=== PATIENT | male | born 1955 | race Caucasian/White ===

== ENCOUNTER 2023-03-17 08:00 | Outpatient (CLI) | payer MEDICARE, OTHER, SELFPAY ==
--- NOTE | 2023-03-21 09:21 | EKG12_ITS ---
Test Reason : PRE OP Blood Pressure : / mmHG Vent. Rate : 051 BPM Atrial Rate : 051 BPM P-R Int : 156 ms QRS Dur : 106 ms QT Int : 486 ms P-R-T Axes : 009 -41 052 degrees QTc Int : 447 ms Sinus bradycardia Left axis deviation T wave abnormality, consider anterior ischemia Abnormal ECG Confirmed by SOREN YU, JOSELYN ([id number]), film editor LOLY FERRER ([id number]) on 03/21/2023 10:35:02 AM Referred By: Parag Jimenez Confirmed By:JOSELYN DOTY MD
== END 2023-03-17 10:00 | disposition home or self-care (01) ==
LOC: PAT 05-07 13:00
PROVIDERS: PCP Family Medicine; Referring Provider Urology; Visit Provider Urology
DX: Z01.810 Encounter for preprocedural cardiovascular examination (principal); R94.31 Abnormal electrocardiogram [ECG] [EKG]
CPT/HCPCS: 93005

== ENCOUNTER → 2023-04-07 | Outpatient (CLI) | payer MEDICARE, OTHER, SELFPAY ==
--- OUTSIDE RECORDS SUMMARY | 2023-04-07 17:18 | XMS RPT_ITS | CCD ---
Author Name Unknown Address [address] [place] [address] Organization [facility] Care Team Providers Care Fur Trimmer Name Role Phone Unavailable Primary Care Provider Unavailabl e Gabriel MARYCRUZ, Luke E Unavailable Jonas YU, Dr. Nathan Unavailable [phone] Tony YU, Dr. Tuttle ([facility]) Unavailable Michelle Horner MA Unavailable Unavailable Esau CORTESN, Ron Unavailable Unavailable Unavailable Unavailable GABRIEL, LUKE E Primary Care Unavailable GABRIEL, LUKE E Attending Unavailable GABRIEL, LUKE E Admitting Unavailable UNGERER, STEPAN HEPATOLOGIST Consulting Unavailable PROVIDER, UNKNOWN Consulting Unavailable NGUYEN CEDEÑO Admitting Unavailable NGUYEN CEDEÑO Primary Care Unavailable NGUYEN CEDEÑO Attending Unavailable UNGERER, STEPAN HEPATOLOGIST Consulting Unavailable PROVIDER, UNKNOWN Consulting Unavailable UNGERER, STEPAN HEPATOLOGIST Consulting Unavailable GABRIEL, LUKE E Primary Care Unavailable GABRIEL, LUKE E Attending Unavailable GABRIEL, LUKE E Admitting Unavailable PROVIDER, UNKNOWN Consulting Unavailable DAWIT QUINONES DO Consulting Unavailable GABRIEL, LUKE E Primary Care Unavailable GABRIEL, LUKE E Attending Unavailable GABRIEL, LUKE E Admitting Unavailable PROVIDER, UNKNOWN Consulting Unavailable PROVIDER, UNKNOWN Consulting Unavailable GABRIEL, LUKE E Attending Unavailable GABRIEL, LUKE E Admitting Unavailable GABRIEL, LUKE E Primary Care Unavailable UNGERER, STEPAN HEPATOLOGIST Consulting Unavailable PROVIDER, UNKNOWN Consulting Unavailable SUHAIL ODELL Attending Unavailable UNGERER, STEPAN HEPATOLOGIST Consulting Unavailable UNGERER, STEPAN HEPATOLOGIST Referring Unavailable SUHAIL ODELL Admitting Unavailable SUHAIL ODELL Primary Care Unavailable PROVIDER, UNKNOWN Consulting Unavailable VIGNESH YU, DR KARINE Priest Attending Doe flores PHYSICIAN, NONE Primary Care Unavailable Allergies Allergy Classification Reported Allergen(s) Allergy Type Date of Onset Reaction(s) Facility (1 source) Penicillins Propensity to adverse reactions to drug 7 Unknown [facility] (1 source) Penicillin Drug [facility] (1 source) Penicillins Drug allergy (disorder) [facility] Repository Medications Current Medications Medication Drug Class(es) Dates Sig (Normalized) Sig (Original) acetaminophen 325 mg / HYDROcodone bitartrate 5 mg oral tablet (1 source) Opioid Agonist Start: 02-14-2023 HYDROcodone 5 mg-acetaminophen 325 mg tablet ; 1 (one) tablet Q6 hours PRN severe pain for 0 days Quantity: 15 {Tablet} Refills: 0 Ordered: 14-Feb-2023 MARYCRUZ Bello Start: 14-Feb-2023 Comments: No OARRS acute treatment Completed/Discontinued Medications Medication Drug Class(es) Dates Sig (Normalized) Sig (Original) Biotin (1 source) take 15 mg by mouth once daily BIOTIN ORAL Take 15 mg by mouth once daily. 0 Active Problems Active Problems Problem Classification Problem Date Documented Da te Episodic/Chronic Calculus of urinary tract (4 sources) Kidney stone; Translations: [Calculus of kidney] 02-14-2023 Episodic Genitourinary symptoms and ill-defined conditions (4 sources) Increased frequency of urination; Translations: [Frequency of micturition] 02-13-2023 Episodic Other circulatory disease (2 sources) Basal crepitations; Translations: [Other specified symptoms and signs involving the circulatory and respiratory systems] 02-13-2023 Episodic Other injuries and conditions due to external causes (2 sources) Motion sickness; Translations: [Motion sickness, initial encounter] 02-13-2023 Episodic Other lower respiratory disease (3 sources) Cough; Translations: [Cough] 02-13-2023 Episodic Other lower respiratory disease (2 sources) Orthopnea; Translations: [Orthopnea] 02-13-2023 Episodic Other lower respiratory disease (4 sources) Restrictive lung disease; Translations: [Other disorders of lung] 10-25-2022 Episodic Unclassified (1 source) Follow up for multiple chronic conditions - The patient is here for follow-up of other condition(s) (Bibasilar crackles, cough). The patient always takes the prescribed medications. No side effects noted (Pt states steroid was working but is now out.). The patient has an active lifestyle but no regular exercise program. The patient states that breathing effort is improved (continued cough.). The patient states that the disease has no overall impact. 10-25-2022 Past or Other Problems Problem Classification Problem Date Documented Da te Episodic/Chronic Unclassified (1 source) Cough - The cough has been occurring for 6 months. The course has been constant. The cough is characterized as productive of frothy sputum. The cough occurs all the time. Associated symptoms include runny nose, sore throat (pt is taking cough drops to help with it) and wheezing, while there is no chest pain, fever, headache, nasal congestion or throat clearing. Note for Cough : pt had pneumonia in March but notes persistent cough sincept did have a cough with allergies before but it seems to have worsened in recent weekspt was given an inhaler from urgent care which seems to helps slightly with his symptoms, but he notes persistent coughing episodes and sputum productionpt has been sleeping on the sofa in a seated position for the last week since he is unable to lay supine without having a coughing fit pt notes worsening of his wheezing and coughing when taking hot showers 09-20-2022 Urinary tract infections (1 source) Urinary tract infections 02-13-2023 Results Test Name Value Interpretation Reference Range Facil ity Vital Signs Date Time Vital Sign Value Performing Clinician Faci lity 02-13-2023 13:53-0500 Body temperature 97.2 [degF] Ron Cifuentes LPN [employer]) [facility] [employer] 02-13-2023 13:53-0500 Body weight 101.61 kg Ron Cifuentes LPN [employer] [employer] 02-13-2023 13:53-0500 Diastolic blood pressure 70 mm[Hg] Ron Cifuentes LPN [facility] [employer], [employer] Encounters Encounter Date Encounter Type Care Provider Facility Start: 04-02-[address] KARINE MEADOWS MD Facility:A Start: 03-28-2023 End: 03-28-2023 ambulatory NGUYEN CEDEÑO [facility] Start: 02-14-2023 End: 02-14-2023 Medication Luke Gabriel PA-C Work Phone[facility] Start: 02-14-2023 End: 02-14-2023 Orders Luke Gabriel PA-C Work Phone: [employer] Start: 02-13-2023 End: 02-13-2023 ambulatory [facility] Start: 02-13-2023 End: 02-13-2023 Office outpatient visit 25 minutes Luke Gabriel PA-C Work Phone: [employer] Start: 10-25-2022 End: 10-25-2022 Office outpatient visit 25 minutes Luke Gabriel PA-C Work Phone: [employer] Start: 10-02-2022 End: 10-02-2022 Orders Luke Gabriel PA-C Work Phone: [employer] Start: 09-27-2022 End: 09-27-2022 ambulatory [facility] Start: 09-24-2022 End: 09-24-2022 Orders Luke Gabriel PA-C Work Phone: [employer]. Start: 09-23-2022 End: 09-23-2022 Orders Luke Gabriel PA-C Work Phone: [employer]. Start: 09-22-2022 End: 09-22-2022 Emergency department patient visit SUHAIL ODELL [facility] Start: 09-20-2022 End: 09-20-2022 ambulatory DAWIT ESQUIVEL [facility] Start: 09-20-2022 End: 09-20-2022 Office outpatient new 30 minutes Luke Gabriel PA-C Work Phone: [facility]. Start: 09-18-2022 Telephone encounter Antony sanderson MD Work Phone: Pulmonary Medicine Procedures Date Procedure Procedure Detail Performing Clinician Start: 02-13-2023 End: 02-14-2023 Ct abdomen & pelvis w/o contrast material Alfonzo Bello PA-C Work Phone: Plan of Treatment Date Care Activity Detail Author Start: 09-20-2027 Urine microalbumin profile DTA P,TDAP,TD (4 - Td or Tdap) [facility] Start: 03-12-2025 DIABETES SCREEN DIABETES SCREEN [facility] Start: 11-08-2022 Influenza vaccination INFLUENZA (#1) [facility] Start: 09-05-2022 Colonoscopy COLONOSCOPY [facility] Start: 09-05-2022 COLORECTAL CANCER SCREENING COLORECTAL CANCER SCREENING [facility] Start: 07-26-2022 LIPID SCREEN LIPID SCREEN [facility] Start: 03-10-2022 ADVANCE DIRECTIVE DISCUSSION ADVANCE DIRECTIVE DISCUSSION [facility] Start: 03-10-2022 DEPRESSION ASSESSMENT DEPRESSION ASS ESSMENT [facility] Start: 2021 PNEUMOCOCCAL: 65+ (1 - PCV) PNEUMOCOCCAL: 65+ (1 - PCV) [facility] Start: 08-25-2014 FECAL OCCULT BLOOD FECAL OCCULT BLOO D [facility] Start: 12-30-2011 PROSTATE CANCER SCRE ENING DISCUSSION PROSTATE CANCER SCREENING DISCUSSION [facility] Start: 2006 SHINGRIX VACCINE (1 of 2) SHINGRIX V ACCINE (1 of 2) [facility] Start: 2001 COLOGUARD (FIT-DNA) COLOGUARD (FIT-D NA) [facility] Start: [address] COLONOGRAPHY [facility] Start: 2001 SIGMOIDOSCOPY SIGMOIDOSCOPY [facility] Start: 1974 HIV SCREENING HIV SCREENING [facility] Start: 04-03-1957 COVID-19 VACCINE (#1) COVID-19 VACCI NE (#1) [facility] Immunizations Immunization Date Immunization Notes Care Provider Fa cility 09-19-2017 tetanus toxoid, redu briana diphtheria toxoid, and acellular pertussis vaccine, adsorbed Antony Mitchell MD Work Phone: [facility] 02-07-1962 trivalent poliovirus vaccine, live, oral Antony Mitchell MD Work Phone: [facility] Work Phone: 10-17-1961 DTP-Haemophilus influenzae type b conjugate vaccine Antony Mitchell MD Work Phone: [facility] Work Phone: 10-17-1961 trivalent poliovirus vaccine, live, oral Antony Mitchell MD Work Phone: [facility] Work Phone: 10-18-1959 trivalent poliovirus vaccine, live, oral Antony Mitchell MD Work Phone: [facility] Work Phone: 10-09-1959 vaccinia (smallpox) vaccine, diluted Antony Mitchell MD Work Phone: [facility] Work Phone: 10-08-1958 DTP-Haemophilus influenzae type b conjugate vaccine Antony Mitchell MD Work Phone: [facility] Work Phone: 1955 DTP-Haemophilus influenzae type b conjugate vaccine Antony Mitchell MD Work Phone: [facility] Work Phone: Payers Date Payer Category Payer Medicare [id number] 2023 Unknown [id number] 2006 [facility] Health [facility] [employer] [facility] OAP [id number] 2006-Present [phone] [address] [place] [address] Open Access [id number] 1955 Unknown [id number] 1956 Unknown [id number] 1956 Unknown [id number] 1956 Unknown [id number] 1956 Unknown [id number] 1956 Unknown [id number] 1955 Unknown [id number] Private Health Insurance [id number] Private Health Insurance [id number] Unknown Social History Date Type Detail Facility Start: 09-05-2017 Tobacco smoking stat [facility] Never smoked tobacco [facility] Start: 09-05-2017 Tobacco use and exposure Former smokeless tobacco user [facility] End: 03-10-1994 History of tobacco use Snuff User [facility] End: 03-10-1994 History of tobacco use Chews Tobacco [facility] Start: 2017 Alcohol intake Current drinke r of alcohol (finding) [facility] Start: 02-13-2020 History of Social function [facility] Start: 02-13-2020 Area Deprivation Index [facility] National Score (1-100), lower number is lower risk Not on file [facility] Start: 11-19-2013 Alcohol Comment 2 beers per day 12 o z [facility] Start: 1955 Sex Assigned At Not on file [facility] Male [employer] Work Phone: Tobacco smoking consumption unknown [employer]; [employer] Work Phone: NEGATED: Highlighted row No Social History Information Available No Social History Information Available [employer]; [employer] Work Phone: Medical Equipment Procedure Code Equipment Code Equipment Origin al Text Equipment Identifier Dates Patch Ventral Dave espinoia 46cm - [id number] Start: 11-24-2013 Note 09-18-2022 Telephone Encounter - Katey Galarza RN - 09/18/2022 2:18 PM EDT Note Date & Type Note Facility 09-18-2022 Miscellaneous Notes Formattin g of this note might be different from the original. Received message for this patient to get scheduled for chronic cough- Called and spoke with patient, Patient informed me he has everything taken care of and doesn't need an appointment in our chronic cough clinic documented in this encounter [facility] History of Past illness Narrative 11-01-2013 Note Date & Type Note Facility documented as of this encounter (statuses as of 09/19/2022) [facility] Summary Purpose Family History No Family History Records FoundNo Family History Records FoundNo Family History Records FoundNo Family History Records Found Advance Directives No Advanced Directives Records FoundNo Advanced Directives Records FoundNo Advanced Directives Records FoundNo Advanced Directives Records Found Additional Source Comments Source Comments (unrecognize d section and content) In the event this informatio n is protected by the Federal Confidentiality of Alcohol and Drug Abuse Patient Records regulations: The Federal rules restrict any use of the information to criminally investigate or prosecute any alcohol or drug abuse patient.[facility] Reason for Visit (unrecogniz ed section and content) (unrecognized sect ion and content) No Status Records FoundNo Status Records FoundNo Status Records FoundNo Status Records Found INFORMATION SOURCE (unrecogn ized section and content) DATE CREATED AUTHOR AUTHOR'S ORGANIZ ATION 02/17/2023 [facility] DATE CREATED AUTHOR AUTHOR'S ORGANIZ ATION 03/28/2023 [facility] DATE CREATED AUTHOR AUTHOR'S ORGANIZ ATION 04/03/2023 [facility] ([place]) FOR RECORDS PERTAINING TO PATIENTS WHO ARE OR HAVE BEEN ENROLLED IN A CHEMICAL DEPENDENCY/SUBSTANCEABUSE PROGRAM, SOME INFORMATION MAY BE OMITTED. This clinical summary was aggregated from multiple sources. Caution should be exercised in using it in the provision of clinical care. This summary normalizes information from multiple sources, and as a consequence, information in this document may materially change the coding, format and clinical context of patient data. In addition, data may be omitted in some cases. CLINICAL DECISIONS SHOULD BE BASED ON THE PRIMARY CLINICAL RECORDS. [facility] [employer] [facility]. provides no warranty or guarantee of the accuracy or completeness of information in this document.
== END | disposition home or self-care (01) ==
LOC: LABSPEC 16:50
PROVIDERS: PCP Physician Assistant; Referring Provider Urology; Visit Provider Urology
DX: R30.0 Dysuria (principal)
CPT/HCPCS: 87086

== ENCOUNTER 2023-06-20 05:21 | Day surgery (SDC) | payer MEDICARE, OTHER, SELFPAY ==
[2023-06-12 11:25] LABS: Absolute Lymphocyte Count 2.22 X10^3/uL (0.83-4.51); Absolute Neutrophil Count 3.6 X10^3/uL (2.0-7.7); Basophil% 1.4 % (0-1); Eosinophil# 0.37 X10^3/uL; Hematocrit 44.5 % (40-54); Hemoglobin 14.4 g/dL (13.0-16.5); Lymphocyte # 2.22 X10^3/ul (0.83-4.51); Lymphocyte % 30.3 % (19-41); Mean Corp Hgb Conc 32.4 g/dL (32-36); Mean Corpuscular Hgb 29.3 pg (27.0-32.0); Mean Corpuscular Volume 90.6 fL (80-94); Mean Platelet Vol. 8.6 fl (6.2-12.0); Monocyte% 10.9 % (0-10); NRBC Flagged by Analyzer 0 % (0-5); Neutrophil # 3.63 X10^3/uL (2.7-7.7); Neutrophil % 49.5 % (47-70); Platelet Count 368 K/mm3 (150-450); RBC Distribution Width CV 13.2 % (11.6-14.6); RBC Distribution Width SD 43.8 fl (35.1-43.9); Red Blood Count 4.91 M/mm3 (4.6-6.2); White Blood Count 7.3 K/mm3 (4.4-11.0)
[2023-06-12 11:58] LABS: Anion Gap 5 (5-15); BUN 18 mg/dL (7-18); BUN/Creat Ratio 13.1 RATIO (10-20); Calcium,Total 9.2 mg/dL (8.5-10.1); Chloride 107 mmol/L (98-107); Creatinine, Serum 1.37 mg/dL (0.70-1.30); EST Glomerular Filtration Rate 55 mL/min (>60); Est Glom Filt Rate - Afr Amer 67 mL/min (>60); Glucose 103 mg/dL (74-106); Potassium 4.4 mmol/L (3.5-5.1); Sodium Level 137 mmol/L (136-145)
[2023-06-20] VITALS (13 sets, daily range): BP systolic 92–122; BP diastolic 54–67; PULSE 47–61; RESP 12–18; TEMP 35.9–36.9; O2SAT 89–100; BMI 29.4; BMI 30.3
[2023-06-20] MEDS: Lactated Ringers 1,000 ML 15 ML IV (06:06)
[2023-06-20] MEDS: Cefazolin 2 GM in 0.9% Normal Saline (100mL Bag) 100 ML IV (07:29)
--- NOTE | 2023-06-20 07:30 | BLB_PTH ---
PATIENT: ROBERTO LYON LOC: [facility] [place] U#:[id number] AGE/SX: 67/M ROOM: RE06/20/[address]: Dr. Parag Jimenez MD : [id number] BED: DIS: 06/22/2023 SPEC #: [id number] RECD: 06/20/23 09:16 STATUS: STEPHON CALVIN #: [id number] JAH: 06/20/23 07:[address]: Parag Jimenez DEPT: SURGICAL PATHOLOGY RECD BY: Ines Wright ENTERED: 06/20/23 10:23 SP TYPE: TURB OTHR DR: MD Alfonzo Giraldo PA Tissues: Urinary bladder, NOS Procedures: Surgery Specimen Level I Surgery Specimen Level IV HEADER OPERATION: Cysto, Transurethral resection, Prostate, Olympus and Litholapaxy PRE-OP DIAGNOSIS: Bladder stone, benign prostatic hypertrophy TISSUE SUBMITTED: Bladder stone and prostate tissue MICROSCOPIC DIAGNOSIS Bladder stone and prostate tissue, transurethral resection and litholopaxy: Benign prostatic hyperplasia glandular and stromal type. Chronic inflammation. Numerous fragments of the stone, clinically bladder stone (gross only). [facility] 06/23/23 MICROSCOPIC DESCRIPTION Slides are reviewed. GROSS DESCRIPTION Received in fixative is one container labeled with the patient's name and designated Bladder stone and prostate tissue. The specimen consists of multiple brownish stone and a few fragments of shabazz-rubbery tissue weighing in aggregate 12.1gm and measuring in aggregate 5.0 x 5.0 x 1.0cm. This specimen predominantly consists of the stones. Soft tissue is entirely submitted in two cassettes. The stones are for gross identification only. [facility] 06/20/23 TC:5 CPT: 57598, 13831
--- NOTE | 2023-06-20 08:24 | HP.PCM_ITS ---
HPI - General General Date of Admission: 06/20/23 HPI Narrative ROBERTO LYON, is a 67 M who presents for transurethral section of prostate and laser bladder stone [facility] Medical History (Updated 06/11/23 @ 15:08 by Radha Meyers) Alcohol use Asthma Bladder stones BPH (benign prostatic hyperplasia) Cardiology follow-up encounter Former smokeless tobacco use Heartburn History of Crohn's disease History of echocardiogram History of stress test PONV (postoperative nausea and vomiting) Prostate disease Shortness of breath on exertion Wears glasses Home Medications budesonide-formoterol HFA 160 mcg-4.5 mcg/actuation aerosol inhaler 2 puff inhalation BID 03/17/23 [History Last Taken 06/20/23 04:00] aspirin 81 mg tablet,delayed release (Adult Aspirin Regimen) 81 mg PO DAILY #1 TAB 03/28/23 [Rx Last Taken 06/20/23 04:00] amiodarone 200 mg tablet 200 mg PO DAILY 06/11/23 [History Last Taken 06/20/23 04:00] metoprolol succinate 25 mg tablet,extended release 24 hr 25 mg PO DAILY 06/11/23 [History Last Taken 06/20/23 04:00] multivitamin (Daily Multi-Vitamin tablet) 1 tab PO DAILY 06/11/23 [History Last Taken 06/06/23] ciprofloxacin HCl 500 mg tablet (Cipro) 500 mg PO BID #10 tabs 06/20/23 [Rx Last Taken Unknown] Allergy/AdvReac Type Severity Reaction Status Date / Time Penicillins AdvReac Rash Verified 06/20/23 05:54 Surgical History H/O knee surgery H/O laminectomy H/O repair of rotator cuff H/O umbilical hernia repair History of cardiac catheterization History of colonoscopy History of coronary artery bypass graft x 3 (~04/21/23) History of heart surgery History of wisdom tooth extraction Social History Smoking Status: Never smoker Vital Signs Vital Signs Vital Signs: 06/20/23 05:55 06/20/23 05:58 Temperature 97.7 F L Temperature Source Temporal Pulse Rate 50 L Respiratory Rate 16 Respiratory Pattern Normal Blood Pressure 121/65 H Blood Pressure Mean 83 Blood Pressure Source Monitor Blood Pressure Position Semi-Fowlers Blood Pressure Location Right Arm Pulse Ox 100 Oxygen Delivery Method Room Air Weight Weight: 101.151 kg Body Mass Index (BMI) 29.4 Results Lab / Micro Data 06/12/23 10:44 06/12/23 10:44
--- NOTE | 2023-06-20 08:25 | DCINST_ITS ---
Discharge Instructions Diet Discharge Diet: No restrictions Activity Discharge Activity: Return to Normal Activity and May Not Drive (while taking narcotic pain medications.) Dressing / Incision Call your doctor if you observe: Fever of 101 or Higher Follow Up Care Please Follow Up With: Parag Jimenez MD When: Call [phone] for an appointment Test Results: Test results from this visit will be discussed in further detail at your follow- up appointment, if applicable. Discharge Plan Admission Primary Reason for Your Visit: turp Attending Provider: Parag Jimenez Primary Care Provider: Alfonzo Bello Consulting Providers: Denilson Millan Discharge Orders/Prescriptions Prescriptions: New ciprofloxacin HCl [Cipro] 500 mg tablet 500 mg PO BID Qty: 10 0RF Continued budesonide-formoterol 160-4.5 mcg/actuation HFA aerosol inhaler 2 puff INHALATION BID amiodarone 200 mg tablet 200 mg PO DAILY metoprolol succinate 25 mg tablet extended release 24 hr 25 mg PO DAILY multivitamin [Daily Multi-Vitamin] Tablet 1 tab PO DAILY Held aspirin [Adult Aspirin Regimen] 81 mg tablet,delayed release (DR/EC) 81 mg PO DAILY Qty: 1 0RF Hold Instructions: Resume on 07/04/23. Discontinued tamsulosin 0.4 mg capsule 0.4 mg PO DAILY Referrals / Follow Up: Parag Jimenez MD [Med Staff - Active Staff] - Alfonzo Bello PA [Primary Care Provider] - Disposition Disposition (needs filled in before D/C Order can be placed): Home, Self Care
--- NOTE | 2023-06-20 08:25 | PCM.OPRPT ---
Report of Operation Date of Procedure: 06/20/23 Pre-Operative Diagnosis: BPH with obstruction Post-Operative Diagnosis: The same Surgery/Procedure Performed:: Transurethral section of prostate, laser bladder stone large Description of Surgical Findings:: In the preoperative setting I discussed with the patient how the surgery would be done with expect afterwards. We discussed how a prostate resection is done and we discussed the risk of the surgery including, bleeding, infection, retrograde ejaculation, changes with ejaculation or intercourse,. We discussed the possibility that the resection of the prostate may not alleviate his urinary symptoms. We discussed the small risk of developing scar tissue along the urethral channel and strictures. We also discussed the chance of the prostate could grow back and he may need further surgery or treatment in the future for prostate problems. Patient was taken back to the operating room, timeout procedure was performed, he was identified and marked and placed on the operating room table. He underwent general anesthesia. He was placed in dorsolithotomy position. Penis and testicles were prepped and draped in usual sterile fashion. Went into the bladder using the visual obturator with a resectoscope. The urethra and genitals were prepped and draped in usual sterile fashion. Went into the bladder using a 24 [place] cystoscope. We used the laser bridge through the scope for continuous irrigation. Then using the laser bridge we introduced a laser fiber into the bladder and the stone in the bladder was trapped against the back wall. The stone measured larger than 2,5cm in total size. The stone was then lasered using laser lithotripsy the small little pieces all the pieces were evacuated on the bladder. After all the stones were removed then the scope was removed there was minimal bleeding. Once inside the bladder identified the right and left ureteral orifice. I then identified the prostate and the anatomy of the prostate. I marked out the area of the sphincter and the verumontanum was identified. I then proceeded with the prostate resection first resected the median lobe. And then resected the right lobe of the prostate. Then to resect the left lobe of the prostate. I then resected the apical tissue of the prostate. This was a complete resection of all obstructive tissue to improve voiding and relieve obstruction. I then made sure that there was no injury to the sphincter or the verumontanum was still intact. At the end of the resection all the chips were Ellik out of the bladder. I then identified the left and right ureteral orifice and these were confirmed to be in good position and effluxing and not injured. The resectoscope was removed, a 22 [place] catheter was placed into the bladder on continuous irrigation. And the urine was fairly light pink color and draining normally. He was taken back to the PACU in good condition. Surgeon: Parag Jimenez Type of Anesthesia: General Drains: 22fr [address] way Admit VTE Documentation VTE Present on Admission: No VTE Mechan Device Prophylaxis: SCD's VTE Pharm Prophylaxis ordered?: No
[2023-06-20] MEDS: Acetaminophen 325 MG Tablet PO (11:48)
[2023-06-20] MEDS: 0.9% Normal Saline (1000mL) 1,000 ML 125 ML IV ×2 (11:48→21:23)
[2023-06-20] MEDS: Ciprofloxacin 400 MG/200 ML BAG 200 MG IV (15:28)
[2023-06-20] MEDS: Ketorolac 15 MG/ML Vial IV (15:28)
[2023-06-20] MEDS: 0.9% Saline Lock 10 ML Syringe IV (15:29)
[2023-06-20] MEDS: Budesonide Respules 0.5 MG/2 ML AMPUL.NEB. INHALATION (19:48)
[2023-06-20] MEDS: Albuterol 2.5 MG/3 ML VIAL.NEB. INHALATION (19:48)
[2023-06-21] VITALS (9 sets, daily range): BP systolic 108–138; BP diastolic 54–71; PULSE 49–62; RESP 12–16; TEMP 36.5–36.8; O2SAT 94–97
[2023-06-21] MEDS: Ciprofloxacin 400 MG/200 ML BAG 200 MG IV (02:40)
[2023-06-21] MEDS: 0.9% Normal Saline (1000mL) 1,000 ML 125 ML IV (06:18)
[2023-06-21] MEDS: Budesonide Respules 0.5 MG/2 ML AMPUL.NEB. INHALATION ×2 (07:18→19:21)
[2023-06-21] MEDS: Albuterol 2.5 MG/3 ML VIAL.NEB. INHALATION ×3 (07:18→19:21)
[2023-06-21] MEDS: Amiodarone 200 MG Tablet PO (08:41)
[2023-06-21] MEDS: Metoprolol(XL)Succ 25 MG Tablet PO (08:41)
[2023-06-21] MEDS: Multivitamins,Therapeutic Tablet 1 TABLET PO (08:41)
[2023-06-21] MEDS: Ketorolac 15 MG/ML Vial IV (14:20)
[2023-06-21] MEDS: Ciprofloxacin 500 MG Tablet PO (21:21)
[2023-06-22 02:00] VITALS: BP 129/65; PULSE 52; RESP 14; TEMP 36.9; O2SAT 97
[2023-06-22] MEDS: Ketorolac 15 MG/ML Vial IV (03:04)
[2023-06-22] MEDS: 0.9% Saline Lock 10 ML Syringe IV (03:04)
--- NOTE | 2023-06-22 03:12 | NURSING ---
Pt pre-medicated per request for Wolf removal w/Toradol 15mg IVP; after Toradol given, pt asked if the wolf could just come out now instead of waiting? 30ml of saline removed from wolf balloon port, cath statlock removed; pt instructed to take a deep breath and 3-way wolf removed easily. Urine clear yellow. Pt jocy all well. Now up walking in halls.
--- NOTE | 2023-06-22 08:27 | PCM.PN.GU ---
Subjective Subjective wolf out has voided able to go home without wolf Objective Data Objective Data Vital Signs: Vital Signs Temp Pulse Resp BP Pulse Ox O2 Del Method O2 Flow Rate 98.4 F 52 L 14 129/65 H 97 Room Air 3 06/22/23 02:00 06/22/23 02:00 06/22/23 02:00 06/22/23 02:00 06/22/23 02:00 06/22/23 02:00 06/20/23 11:38 Oxygen Flow Rate (L/min) 3 Oxygen Delivery Method Room Air Weight: 104.355 kg Body Mass Index (BMI) 30.3 Intake & Output: Intake and Output for Last 24 Hours 06/20/23 06/21/23 06/22/23 23:59 23:59 23:59 Intake Total 4500.75 / 4500.75 2362.51 / 2812.51 450 / 450 Output Total 1500 / 1500 4600 / 5700 1775 / 1775 Balance 3000.75 / 3000.75 -2237.49 / -2887.49 -1325 / -1325 Lab / Micro Data 06/12/23 10:44 06/12/23 10:44
[2023-06-22] MEDS: Multivitamins,Therapeutic Tablet 1 TABLET PO (08:32)
[2023-06-22] MEDS: Ciprofloxacin 500 MG Tablet PO (09:11)
[2023-06-22 09:12] VITALS: PULSE 48
[2023-06-22 09:35] VITALS: BP 133/75; PULSE 48; RESP 16; TEMP 36.9; O2SAT 98
== END 2023-06-22 06:33 | disposition home or self-care (01) ==
LOC: SDC 05:23 → AC 05:23 → MS3 09:23
PROVIDERS: Physician Assistant Medical; PCP Physician Assistant; Referring Provider Urology; Visit Provider Urology
PROC: (CPT 52601; principal; 2023-06-20 07:20)
DX: N40.1 Benign prostatic hyperplasia with lower urinary tract symptoms (principal); N21.0 Calculus in bladder; N13.8 Other obstructive and reflux uropathy; J45.909 Unspecified asthma, uncomplicated; Z79.82 Long term (current) use of aspirin; Z79.899 Other long term (current) drug therapy; I10 Essential (primary) hypertension; N41.9 Inflammatory disease of prostate, unspecified
CPT/HCPCS: 52601; 00914; 36415; 80048; 85025; 88300; 88305; 88307; 94640; 94668; 99252; J7030; J7120; A4216; G0463; J0744; J2405

== ENCOUNTER → 2023-11-17 | Outpatient (CLI) | payer MEDICARE, OTHER, SELFPAY ==
[2023-11-17 10:16] LABS: PSA,Total - Annual Screen 4.23 ng/mL (0.00-4.00)
== END | disposition home or self-care (01) ==
LOC: LAB 09:16
PROVIDERS: PCP Physician Assistant; Referring Provider Urology; Visit Provider Urology
DX: Z12.5 Encounter for screening for malignant neoplasm of prostate (principal)
CPT/HCPCS: 36415; 84153; G0103

== ENCOUNTER → 2024-11-22 | Outpatient (CLI) | payer MEDICARE, OTHER, SELFPAY ==
[2024-11-22 10:46] LABS: PSA,Total- Diagnostic 4.12 ng/mL (0.00-4.00)
== END | disposition home or self-care (01) ==
PROVIDERS: PCP Physician Assistant; Referring Provider Urology; Visit Provider Urology
DX: R97.20 Elevated prostate specific antigen [PSA] (principal)
CPT/HCPCS: 36415; 84153